=== PATIENT | male | born 1995 | race Caucasian/White ===

== ENCOUNTER 2017-08-31 02:01 | Emergency (ER) | payer MEDICAID, OTHER ==
[2017-08-31 02:13] VITALS: BP 128/88
[2017-08-31] MEDS ORDERED: BUPIVACAINE HCL 0.75% INJ/PF (7.5 MG/1 ML) 10 ML SDV INJ ONE (03:19)
[2017-08-31] MEDS ORDERED: HYDROCODONE/ACETAMINOPHEN 5-325 MG (6 TAB/ER DISP) PO PRN (03:44)
--- NOTE | 2017-08-31 03:47 | ER Document Report ---
HPI - HPI Patient complains to provider of: dental pain Pain Level: 4 Context: Patient is a 22-year-old male who comes emergency department for chief complaint of dental pain. He states that his tooth has been hurting a lot since yesterday, he was placed on an antibiotic previously and he just finished these, he was advised by a dentist but told that he likely needed a root canal or extraction and they did not perform either. He denies sore throat, neck pain , fever. Past Medical History - General Information source: Patient - Social History Smoking Status: Never Smoker Drug Abuse: None Lives with: Spouse/Significant other Family History: Reviewed & Not Pertinent - Medical History Medical History: Negative Surgical Hx: Negative - Immunizations Immunizations up to date: Yes Hx Diphtheria, Pertussis, Tetanus Vaccination: Yes Vertical Provider Document - CONSTITUTIONAL General Appearance: Mild Distress - Patient appears anxious and mildly uncomfortable, Thin - INFECTION CONTROL TRAVEL OUTSIDE OF THE [place] IN LAST 30 DAYS: No - HEENT HEENT: Atraumatic, Normocephalic Mouth Diagram: 1 - Dental caries with mild surrounding erythema, no noticeable abscess, unremarkable oral exam otherwise - NECK Neck: Normal Inspection - RESPIRATORY Respiratory: Breath Sounds Normal, No Respiratory Distress - CARDIOVASCULAR Cardiovascular: Regular Rate, Regular Rhythm - GI/ABDOMEN Gastrointestinal: Abdomen Soft, Abdomen Non-Tender - BACK Back: Normal Inspection - MUSCULOSKELETAL/EXTREMETIES Musculoskeletal/Extremeties: MAEW, FROM, Non-Tender - NEURO Level of Consciousness: Awake, Alert, Appropriate Course - Vital Signs Vital signs: Temp Pulse Resp BP Pulse Ox 97.8 F 54 L 18 128/88 H 99 08/31/17 02:11 08/31/17 02:11 08/31/17 02:11 08/31/17 02:11 08/31/17 02:11 Discharge - Discharge Clinical Impression: Tooth pain Condition: Stable Disposition: HOME, SELF-CARE Additional Instructions: Your examination is consistent with a dental infection, take the antibiotics as prescribed, call the dental clinic today to set up close follow-up for additional management or this will continue to happen. Return if you worsen including swelling of the face. Prescriptions: Amoxicillin Trihydrate [Amoxil 500 mg Capsule] 500 mg PO TID #30 cap Hydrocodone/Acetaminophen [[place] 5-325 mg Tablet] 1 - 2 tab PO ASDIR #8 tablet Forms: Return to Work, Treatment of Relative/Child Referrals: [facility] [Provider Group] - 08/31/17
[2017-08-31] MEDS ORDERED: AMOXICILLIN TRIHYDRATE 500 MG CAPSULE PO ONE (03:48)
[2017-08-31] MEDS ORDERED: OXYCODONE-ACETAMINOPHEN 5-325 MG TABLET PO ONE (03:50)
== END 2017-08-31 04:20 | disposition home or self-care (01) ==
LOC: ER 02:01
DX: K02.9 Dental caries, unspecified (principal); K08.89 Other specified disorders of teeth and supporting structures
CPT/HCPCS: 99282; J3490